=== PATIENT | female | born 1965 | race African-American/Black ===

== ENCOUNTER 2019-06-09 07:42 | Emergency (ER) | payer OTHER ==
[~2019-06-09] VITALS: Ht 167.6 cm; Wt 110.0 kg
[2019-06-09 08:30] LABS: BASOPHILS % 0.6 % (0.0-2.0); EOSINOPHILS % 0.6 % (0.0-5.0); HEMATOCRIT. 24.6 % (36.0-48.0); HEMOGLOBIN. 8.3 g/dL (12.0-16.0); LYMPHOCYTES % 17.2 % (20.0-50.0); MEAN CORPUSCULAR HEMOGLOBIN 27.5 pg (28.0-32.0); MEAN CORPUSCULAR VOLUME 81.3 fL (81.0-99.0); MEAN PLATELET VOLUME 6.7 fl (7.4-10.4); NEUTROPHILS % 75.6 % (40.0-76.0); PLATELET 207 x1000/uL (130-400); RED BLOOD CELL COUNT 3.03 mill/uL (4.2-5.4); RED CELL DISTRIBUTION WIDTH 16.6 % (11.6-14.6)
[2019-06-09 08:34] LABS: CHLORIDE 113 mEq/L (98-107)
[2019-06-09 08:40] LABS: INR 0.9; PROTHROMBIN TIME 9.3 sec (9.6-11.0)
[2019-06-09] MEDS ORDERED: MORPHINE SULFATE 4 MG/ML CPJ (NOT FOR IM USE) IV ONE (09:30)
[2019-06-09 11:12] LABS: CLARITY URINE CLEAR (CLEAR); COLOR URINE YELLOW (YELLOW); KETONES URINE NEGATIVE (NEGATIVE); LEUKOCYTE ESTERASE URINE 1+ (NEGATIVE); NITRITE URINE NEGATIVE (NEGATIVE); OCCULT BLOOD URINE NEGATIVE (NEGATIVE); PH URINE 5.5 (4.5-8.0); PROTEIN URINE 4+ (NEGATIVE); SPECIFIC GRAVITY URINE 1.016 (1.005-1.030); UROBILINOGEN URINE 0.2 E.U./dL (0.2-1.0)
[2019-06-09] MEDS ORDERED: AMLODIPINE 10MG TABLET PO ONE (12:30)
[2019-06-09] MEDS ORDERED: FUROSEMIDE 20MG TABLET PO ONE (12:30)
[2019-06-09] MEDS ORDERED: HYDRALAZINE HCL 25MG TABLET PO ONE (12:30)
[2019-06-09 13:00] VITALS: BP 192/98
== END 2019-06-09 13:11 | disposition home or self-care (01) ==
LOC: ER 07:42 → CANBEDREQ 13:31
DX: E87.70 Fluid overload, unspecified (principal); I12.0 Hypertensive chronic kidney disease with stage 5 chronic kidney disease or end stage renal disease; E11.22 Type 2 diabetes mellitus with diabetic chronic kidney disease; N18.6 End stage renal disease; Z88.5 Allergy status to narcotic agent; E78.5 Hyperlipidemia, unspecified; R06.02 Shortness of breath; M79.89 Other specified soft tissue disorders
CPT/HCPCS: 36415; 71045; 80053; 81003; 83605; 83880; 84484; 85025; 85610; 93005; 96374; 99284; J2270

== ENCOUNTER 2020-09-01 20:10 | Inpatient (IN) | payer OTHER ==
[~2020-09-01] VITALS: Ht 160 cm; Wt 83.5 kg
[2020-09-01 20:58] LABS: CHLORIDE 111 mEq/L (98-107)
[2020-09-01 20:59] LABS: PROTHROMBIN TIME 10.4 sec (9.6-11.0)
[2020-09-01 21:09] LABS: BASOPHILS % 0.4 % (0.0-2.0); EOSINOPHILS % 1.7 % (0.0-5.0); HEMATOCRIT. 21.1 % (36.0-48.0); HEMOGLOBIN. 7.1 g/dL (12.0-16.0); LYMPHOCYTES % 19.1 % (20.0-50.0); MEAN CORPUSCULAR HEMOGLOBIN 28.3 pg (28.0-32.0); MEAN CORPUSCULAR VOLUME 83.7 fL (81.0-99.0); MEAN PLATELET VOLUME 6.5 fl (7.4-10.4); MONOCYTES % 11.2 % (2.0-8.0); NEUTROPHILS % 67.6 % (40.0-76.0); PLATELET 311 x1000/uL (130-400); RED BLOOD CELL COUNT 2.52 mill/uL (4.2-5.4); RED CELL DISTRIBUTION WIDTH 17.1 % (11.6-14.6)
[2020-09-01] MEDS ORDERED: HYDRALAZINE 20MG/ML VIAL IV ONE (21:45)
[2020-09-01] MEDS ORDERED: FUROSEMIDE 100MG/10ML VIAL IVP ONE (22:45)
[2020-09-02] MEDS: ACETAMINOPHEN 325MG TABLET PO PRN ×2 (08:08→20:18)
[2020-09-02] MEDS: TERAZOSIN HCL 1MG CAPSULE PO SCH ×2 (10:30→21:00)
[2020-09-02] MEDS: LOSARTAN POTASSIUM 50 MG TABLET PO SCH ×2 (10:30→21:00)
[2020-09-02] MEDS: LABETALOL HCL 200MG TABLET PO SCH ×2 (10:32→21:00)
[2020-09-02] MEDS ORDERED: ONDANSETRON HCL 4MG/2ML INJ IV PRN (11:45)
[2020-09-02] MEDS ORDERED: DEXTROSE 50% WATER 50ML SYRINGE IV PRN (11:45)
[2020-09-02] MEDS ORDERED: HYDRALAZINE 20MG/ML VIAL IV PRN (11:45)
[2020-09-02] MEDS: INSULIN LISPRO 100 UNITS/ML SUBCUT SCH ×3 (12:00→22:07)
[2020-09-02] MEDS: AMLODIPINE 10MG TABLET PO SCH (12:12)
[2020-09-02 12:48] LABS: BASOPHILS % 0.4 % (0.0-2.0); EOSINOPHILS % 1.8 % (0.0-5.0); MEAN CORPUSCULAR HEMOGLOBIN 28.6 pg (28.0-32.0); MEAN CORPUSCULAR VOLUME 83.1 fL (81.0-99.0); MEAN PLATELET VOLUME 6.4 fl (7.4-10.4); MONOCYTES % 13.7 % (2.0-8.0); NEUTROPHILS % 61.1 % (40.0-76.0); PLATELET 304 x1000/uL (130-400); RED BLOOD CELL COUNT 2.42 mill/uL (4.2-5.4); RED CELL DISTRIBUTION WIDTH 16.6 % (11.6-14.6)
[2020-09-02 12:54] LABS: HEMATOCRIT. 20.1 % (36.0-48.0); HEMOGLOBIN. 6.9 g/dL (12.0-16.0)
[2020-09-02 13:30] VITALS: BP 160/79
[2020-09-02] MEDS: HYDRALAZINE HCL 50MG TABLET PO SCH ×2 (14:00→22:00)
[2020-09-02 14:27] LABS: FOLIC ACID (FOLATE) SERUM 16.6 ng/mL (>5.38)
[2020-09-02] MEDS: NITROGLYCERIN OINT 1GM/INCH UDPKT TD SCH ×2 (15:00→22:00)
[2020-09-02] MEDS: BLOOD SUGAR DIAGNOSTIC STRIP TEST SCH ×2 (17:20→21:52)
[2020-09-02 20:00] VITALS: BP 179/87
[2020-09-02] MEDS ORDERED: TRAZODONE HCL 50MG TABLET PO PRN (21:00)
[2020-09-02] MEDS ORDERED: GENT30OI2 TP (21:22)
[2020-09-02] MEDS ORDERED: HYDR-4346 PO (21:23)
[2020-09-02] MEDS ORDERED: LABE200T28 MT (21:24)
[2020-09-02] MEDS ORDERED: AMLO10TA80 MT (21:25)
[2020-09-02] MEDS ORDERED: LEVO300T6 MT (21:28)
[2020-09-02] MEDS ORDERED: LOSA50TA41 PO (21:29)
[2020-09-02] MEDS ORDERED: SEVE800T8 MT (21:29)
[2020-09-02] MEDS ORDERED: CHOL2000 (21:31)
[2020-09-02] MEDS ORDERED: METO5TAB2 PO (21:31)
[2020-09-02] MEDS ORDERED: METO2.5T2 PO (21:31)
[2020-09-02] MEDS ORDERED: TERA1CAP46 PO (21:32)
[2020-09-02] MEDS ORDERED: PRAV80TA21 PO (21:33)
[2020-09-02] MEDS ORDERED: FURO80TA3 PO (21:33)
[2020-09-02] MEDS: EPOETIN ALFA-EPBX 10,000 UNIT/ML VIAL SUBCUT SCH (22:02)
[2020-09-03] MEDS: LOSARTAN POTASSIUM 50 MG TABLET PO SCH ×3 (00:34→21:50)
[2020-09-03] MEDS: TERAZOSIN HCL 1MG CAPSULE PO SCH ×3 (00:34→21:50)
[2020-09-03 04:00] VITALS: BP 188/94
[2020-09-03] MEDS: NITROGLYCERIN OINT 1GM/INCH UDPKT TD SCH ×3 (05:04→21:51)
[2020-09-03] MEDS: HYDRALAZINE HCL 50MG TABLET PO SCH (05:05)
[2020-09-03] MEDS: BLOOD SUGAR DIAGNOSTIC STRIP TEST SCH ×4 (07:03→21:44)
[2020-09-03 07:24] LABS: CHLORIDE 103 mEq/L (98-107)
[2020-09-03 07:41] LABS: BASOPHILS % 0.5 % (0.0-2.0); EOSINOPHILS % 1.8 % (0.0-5.0); HEMATOCRIT. 21.6 % (36.0-48.0); HEMOGLOBIN. 7.3 g/dL (12.0-16.0); LYMPHOCYTES % 24.3 % (20.0-50.0); MEAN CORPUSCULAR HEMOGLOBIN 28.7 pg (28.0-32.0); MEAN CORPUSCULAR VOLUME 84.9 fL (81.0-99.0); MEAN PLATELET VOLUME 7.2 fl (7.4-10.4); NEUTROPHILS % 59.4 % (40.0-76.0); PLATELET 311 x1000/uL (130-400); RED BLOOD CELL COUNT 2.54 mill/uL (4.2-5.4); RED CELL DISTRIBUTION WIDTH 16.5 % (11.6-14.6)
[2020-09-03] MEDS ORDERED: INSULIN LISPRO 100 UNITS/ML SUBCUT SCH (07:50)
[2020-09-03 08:00] VITALS: BP 174/88
[2020-09-03] MEDS ORDERED: INSULIN LISPRO 100 UNITS/ML SUBCUT NR (08:00)
[2020-09-03] MEDS ORDERED: DEXTROSE 50% WATER 50ML SYRINGE IV PRN ×2 (08:00)
[2020-09-03] MEDS: AMLODIPINE 10MG TABLET PO SCH (08:52)
[2020-09-03] MEDS: ACETAMINOPHEN 325MG TABLET PO PRN ×2 (08:52→20:12)
[2020-09-03] MEDS: LABETALOL HCL 200MG TABLET PO SCH ×2 (08:53→21:50)
[2020-09-03] MEDS ORDERED: INSULIN GLARGINE UD 100 UNITS/ML SYR SUBCUT SCH ×2 (10:00→22:00)
[2020-09-03 12:00] VITALS: BP 145/66
[2020-09-03] MEDS: INSULIN LISPRO 100 UNITS/ML SUBCUT SCH ×3 (12:18→21:52)
[2020-09-03] MEDS ORDERED: BLOOD SUGAR DIAGNOSTIC STRIP TEST SCH ×2 (12:20)
[2020-09-03] MEDS: HYDRALAZINE HCL 100MG TABLET PO SCH ×2 (13:40→21:50)
[2020-09-03 16:00] VITALS: BP 143/62
[2020-09-03 20:00] VITALS: BP 131/68
[2020-09-03] MEDS: FUROSEMIDE 40MG TABLET PO SCH (21:50)
[2020-09-03] MEDS: ATORVASTATIN CALCIUM 40MG TABLET PO SCH (21:51)
[2020-09-04] VITALS: BP 131/77
[2020-09-04 04:00] VITALS: BP 165/71
[2020-09-04] MEDS: NITROGLYCERIN OINT 1GM/INCH UDPKT TD SCH ×3 (06:00→23:27)
[2020-09-04] MEDS: HYDRALAZINE HCL 100MG TABLET PO SCH ×3 (06:32→23:27)
[2020-09-04] MEDS: INSULIN LISPRO 100 UNITS/ML SUBCUT SCH ×4 (06:33→20:01)
[2020-09-04] MEDS: BLOOD SUGAR DIAGNOSTIC STRIP TEST SCH ×4 (06:34→20:01)
[2020-09-04 07:22] LABS: BASOPHILS % 0.5 % (0.0-2.0); EOSINOPHILS % 1.6 % (0.0-5.0); HEMOGLOBIN. 7.5 g/dL (12.0-16.0); LYMPHOCYTES % 15.6 % (20.0-50.0); MEAN CORPUSCULAR HEMOGLOBIN 28.7 pg (28.0-32.0); MEAN CORPUSCULAR VOLUME 84.8 fL (81.0-99.0); MEAN PLATELET VOLUME 6.9 fl (7.4-10.4); NEUTROPHILS % 70.3 % (40.0-76.0); PLATELET 296 x1000/uL (130-400); RED BLOOD CELL COUNT 2.59 mill/uL (4.2-5.4); RED CELL DISTRIBUTION WIDTH 16.3 % (11.6-14.6)
[2020-09-04 07:26] LABS: CHLORIDE 99 mEq/L (98-107)
[2020-09-04 08:12] VITALS: BP 101/74
[2020-09-04] MEDS: FUROSEMIDE 40MG TABLET PO SCH ×2 (08:40→20:59)
[2020-09-04] MEDS: LOSARTAN POTASSIUM 50 MG TABLET PO SCH ×2 (08:40→20:58)
[2020-09-04] MEDS: TERAZOSIN HCL 1MG CAPSULE PO SCH (08:40)
[2020-09-04] MEDS: AMLODIPINE 10MG TABLET PO SCH (08:41)
[2020-09-04] MEDS: LABETALOL HCL 200MG TABLET PO SCH ×2 (08:41→20:58)
[2020-09-04] MEDS ORDERED: INSULIN GLARGINE UD 100 UNITS/ML SYR SUBCUT SCH ×2 (10:00)
[2020-09-04 12:49] VITALS: BP 151/70
[2020-09-04] MEDS: CLONIDINE 0.3MG TABLET PO SCH ×2 (13:29→22:00)
[2020-09-04] MEDS ORDERED: CLONIDINE 0.1MG TABLET PO SCH (14:00)
[2020-09-04 16:16] VITALS: BP 138/62
[2020-09-04 20:00] VITALS: BP 148/73
[2020-09-04] MEDS: EPOETIN ALFA-EPBX 10,000 UNIT/ML VIAL SUBCUT SCH (20:58)
[2020-09-04] MEDS: ACETAMINOPHEN 325MG TABLET PO PRN (20:58)
[2020-09-04] MEDS: TERAZOSIN HCL 5MG CAPSULE PO SCH (20:59)
[2020-09-04] MEDS: ATORVASTATIN CALCIUM 40MG TABLET PO SCH (20:59)
[2020-09-04] MEDS: INSULIN GLARGINE UD 100 UNITS/ML SYR SUBCUT SCH (23:30)
[2020-09-05] VITALS: BP 122/64
[2020-09-05 04:00] VITALS: BP 144/60
[2020-09-05] MEDS: NITROGLYCERIN OINT 1GM/INCH UDPKT TD SCH ×2 (05:28→13:40)
[2020-09-05 06:18] LABS: BASOPHILS % 0.5 % (0.0-2.0); EOSINOPHILS % 1.6 % (0.0-5.0); HEMATOCRIT. 21.6 % (36.0-48.0); HEMOGLOBIN. 7.3 g/dL (12.0-16.0); LYMPHOCYTES % 15.2 % (20.0-50.0); MEAN CORPUSCULAR HEMOGLOBIN 28.8 pg (28.0-32.0); MEAN PLATELET VOLUME 7.1 fl (7.4-10.4); MONOCYTES % 12.7 % (2.0-8.0); PLATELET 303 x1000/uL (130-400); RED BLOOD CELL COUNT 2.54 mill/uL (4.2-5.4); RED CELL DISTRIBUTION WIDTH 16.3 % (11.6-14.6)
[2020-09-05 06:30] LABS: CHLORIDE 96 mEq/L (98-107)
[2020-09-05 06:38] LABS: PHOSPHORUS 5.7 mg/dL (2.5-4.9)
[2020-09-05] MEDS: BLOOD SUGAR DIAGNOSTIC STRIP TEST SCH ×2 (06:44→12:20)
[2020-09-05] MEDS ORDERED: INSULIN LISPRO 100 UNITS/ML SUBCUT NR (07:00)
[2020-09-05] MEDS: CLONIDINE 0.3MG TABLET PO SCH ×2 (07:18→13:37)
[2020-09-05] MEDS: HYDRALAZINE HCL 100MG TABLET PO SCH ×2 (07:18→13:38)
[2020-09-05] MEDS: INSULIN LISPRO 100 UNITS/ML SUBCUT SCH ×2 (07:25→13:39)
[2020-09-05 08:00] VITALS: BP 133/70
[2020-09-05] MEDS: LABETALOL HCL 200MG TABLET PO SCH (08:20)
[2020-09-05] MEDS: FUROSEMIDE 40MG TABLET PO SCH (08:20)
[2020-09-05] MEDS: TERAZOSIN HCL 5MG CAPSULE PO SCH (08:20)
[2020-09-05] MEDS: AMLODIPINE 10MG TABLET PO SCH (08:21)
[2020-09-05] MEDS: LOSARTAN POTASSIUM 50 MG TABLET PO SCH (08:21)
[2020-09-05] MEDS: INSULIN GLARGINE UD 100 UNITS/ML SYR SUBCUT SCH (09:32)
[2020-09-05 12:00] VITALS: BP 140/77
[2020-09-05 13:57] VITALS: BP 133/76
[2020-09-05 16:00] VITALS: BP 140/70
== END 2020-09-05 16:55 | disposition home or self-care (01) | DRG 280 ==
LOC: ER 20:10 → MICUSO 09-02 01:08 → EDBEDREQTM 09-02 01:17 → EDBEDREQ 09-02 01:17 → EDBEDREQDT 09-02 01:17 → ENRESERV 09-02 09:29 → 6WST 09-02 13:01
PROVIDERS: ADMIT Internal Medicine; ATTEND Internal Medicine
PROC: 3E1M39Z Irrigation of Peritoneal Cavity using Dialysate, Percutaneous Approach (ICD-10-PCS; principal; 2020-09-05)
DX: I13.2 Hypertensive heart and chronic kidney disease with heart failure and with stage 5 chronic kidney disease, or end stage renal disease (principal); E43 Unspecified severe protein-calorie malnutrition; I21.4 Non-ST elevation (NSTEMI) myocardial infarction; N18.6 End stage renal disease; J96.01 Acute respiratory failure with hypoxia; I16.1 Hypertensive emergency; E87.2 Acidosis; E11.22 Type 2 diabetes mellitus with diabetic chronic kidney disease; I50.9 Heart failure, unspecified; D63.1 Anemia in chronic kidney disease; D72.819 Decreased white blood cell count, unspecified; E11.65 Type 2 diabetes mellitus with hyperglycemia; E66.9 Obesity, unspecified; E78.5 Hyperlipidemia, unspecified; R04.0 Epistaxis; E78.1 Pure hyperglyceridemia; Z20.822 Contact with and (suspected) exposure to COVID-19; Z96.41 Presence of insulin pump (external) (internal); I45.10 Unspecified right bundle-branch block; E78.00 Pure hypercholesterolemia, unspecified; I27.21 Secondary pulmonary arterial hypertension; Z99.2 Dependence on renal dialysis; Z88.8 Allergy status to other drugs, medicaments and biological substances; Z79.4 Long term (current) use of insulin; Z86.73 Personal history of transient ischemic attack (TIA), and cerebral infarction without residual deficits; Z68.32 Body mass index [BMI] 32.0-32.9, adult
CPT/HCPCS: 36415; 71045; 80048; 80053; 80061; 82607; 82728; 82746; 82962; 83036; 83540; 83550; 83605; 83735; 83880; 84100; 84484; 85025; 85044; 86850; 86900; 87426; 93005; 93306; 97162; 99285; J0360; J0885; J1815; J1940